=== PATIENT | male | born 1990 | race Caucasian/White ===

== ENCOUNTER 2021-09-14 01:26 | Emergency (ER) | payer SELFPAY ==
[2021-09-14 01:34] VITALS: BP 107/60; BP 110/60; PULSE 90; PULSE 91; RESP 16; TEMP 36.4; O2SAT 95; O2SAT 97; BMI 22.9
--- NOTE | 2021-09-14 02:21 | ED.ALCOHOL ---
HPI - Alcohol General Chief Complaint: ETOH/Substance Use Stated Complaint: ETOH Time Seen by Provider: 09/14/21 01:44 Source: EMS Mode of arrival: EMS Limitations: altered mental status History of Present Illness HPI narrative: 31-year-old male who presents emergency department for evaluation altered mental status. Information came from EMS and nursing notes the patient is altered and most likely acutely intoxicated. According to EMS, the patient's friends reported that the patient drink closed to handle vodka and then became unresponsive. The patient's friends tried to wake him up by putting him in shower. The patient did not wake up and his friend then called an ambulance. Initially he was given Narcan with no response. The patient was then transported to the emergency department. On arrival to the emergency department the patient is minimally responsive to painful stimuli, he is breathing spontaneously and does not appear to be in respiratory distress. There are no old records in our system on this patient. MD complaint: alcohol intoxication Last drink: Just prior to admission Amount of alcohol consumed: One handle of vodka Treatments prior to arrival: other (Intranasal Narcan with no effect) Related Data Allergies Allergy/AdvReac Type Severity Reaction Status Date / Time No Known Allergies Allergy Verified 09/14/21 02:17 Review of Systems Review of Systems: Yes Unobtainable due to mental status [facility] Past Medical History [facility] Narrative: Past medical history unknown. Past surgical history unknown. Social history: Unobtainable except for the fact the patient did drink a large amount of vodka prior to coming to the emergency department. Physical Exam ED Vital Signs: Vital Signs - 24 hr 09/14/21 01:34 09/14/21 02:22 09/14/21 03:23 Temperature 97.6 F Pulse Rate 91 67 79 Respiratory Rate 16 19 16 Blood Pressure 107/60 93/55 L 98/55 L Pulse Oximetry 97 96 97 09/14/21 04:28 09/14/21 05:46 Temperature Pulse Rate 76 77 Respiratory Rate 20 18 Blood Pressure 106/53 L 100/52 L Pulse Oximetry 98 98 BMI result Body Mass Index 22.9 Const Other: Somnolent male patient minimally responsive to painful stimuli, breathing spontaneously HENMT Head: Yes normal to inspection, Yes normocephalic and Yes atraumatic Ears: external ears normal General nose exam: Normal external nose present Face and sinus: Yes normal facial exam Mouth: Normal oral and palatal mucosa present Throat: Yes posterior oropharynx normal Eyes General: appearance normal, both eyes and all related structures Neck Neck: Yes normal visual inspection, Yes no lymphadenopathy, Yes trachea midline and Yes supple Chest Chest palpation & inspection: normal inspection of the chest and normal palpation of entire chest wall Resp Effort & Inspection: normal respiratory effort and able to speak in complete sentences Auscultation: clear to auscultation bilaterally Cardio Rate: regular rate Rhythm: regular rhythm Heart sounds: S1 normal heart sound present, S2 normal heart sound present and no murmurs GI Inspection: Yes normal to inspection Palpation (GI): Soft to palpation, nontender and no guarding Auscultation: normal bowel sounds General: Yes no CVA tenderness Back/Spine/Pelvis Back: no CVA tenderness Skin General skin exam: no rashes or lesions noted Neuro Other: Minimally responsive to painful stimuli Extrem General: Yes normal to inspection Course Course Course Narrative: 31-year-old male who reportedly drank a large amount alcohol prior to coming to the emergency department. The patient was given intranasal Narcan prior to coming to the emergency department with no change in his altered level of consciousness. On presentation the patient is somnolent and minimally responsive to painful stimuli, he is breathing spontaneously, his O2 saturation was 97% on room air. His exam was consistent with acute intoxication. The patient was placed on a cardiac, O2 saturation and end-tidal CO2 monitor. Laboratory evaluation was ordered. This time I do not think that he needs a head CT or that he needs to be intubated however will watch this patient will be monitored for signs of respiratory depression. 0658: Start physician observation: Laboratory evaluation: WBC elevated 16,600. CO2 low 18, chloride elevated 114, ETOH level elevated 338. Patient's presentation is consistent with acute alcohol intoxication. The patient was re-evaluated by me. The patient was still somnolent and does respond to painful stimuli. Lungs were clear, heart regular rate rhythm, abdomen soft nontender. The patient has been in the emergency department for approximately 5.5 hours and I believe that he still needs more time for observation. Therefore the patient will be placed in physician observation. I will obtain a CT scan brain to look for other possibilities for his altered mental status. At the end of my shift, the patient's care was turned over to my colleague, Dr. Elmogy. MDM - Alcohol Lab Data Result diagrams: 09/14/21 02:32 09/14/21 02:32 Labs: Lab Results 09/14/21 09/14/21 09/14/21 Range/Units 02:32 02:32 02:32 WBC 16.6 H (4.8-10.8) X10*3/uL RBC 4.63 (4.60-5.80) X10*6/uL Hgb 14.0 (14.0-18.0) g/dl Hct 41.3 L (42.0-52.0) % MCV 89.2 (80.0-98.0) fL MCH 30.2 (27.0-33.0) pg MCHC 33.9 (31.0-36.0) g/dl RDW 11.7 (11.0-16.0) % Plt Count 281 (160-400) X10*3/uL MPV 9.4 (9.4-12.4) fL Immature Gran % (Auto) 0.3 (0.0-0.4) % Neut % (Auto) 77.5 H (45-73) % Lymph % (Auto) 16.6 L (20-40) % [place] % (Auto) 5.2 (2-11) % Eos % (Auto) 0.1 (0-4) % Baso % (Auto) 0.3 (0-2) % Lymph # (Auto) 2.8 (1.2-4.9) X10*3/uL [place] # (Auto) 0.9 (0.1-1.2) X10*3/uL Eos # (Auto) 0.0 (0.0-0.4) X10*3/uL Baso # (Auto) 0.1 (0.0-0.2) X10*3/uL Abs Immat Gran (auto) 0.05 H (0.00-0.03) X10*3/uL Absolute Neuts (auto) 12.9 H (2.0-8.3) x10*3/uL Absolute Nucleated RBC 0.000 (0.0-0.012) X10*3/uL Nucleated RBC % (auto) 0.0 (0.0-0.2) /100WBC Sodium 144 (135-145) mmol/L Potassium 4.0 (3.3-5.1) mmol/L Chloride 114 H (96-108) mmol/L Carbon Dioxide 18 L (22-29) mmol/L Anion Gap 16 (12-20) BUN 15 (9-16) mg/dL Creatinine 0.68 (0.5-1.4) mg/dL Estim Creat Clear Calc 164.5 Estimated GFR > 60 Random Glucose 90 (60-115) mg/dL Calcium 7.9 L (8.4-10.2) mg/dL Total Bilirubin 0.2 (0.0-1.0) mg/dL AST 25 (5-37) U/L ALT 15 (0-40) U/L Alkaline Phosphatase 56 (39-117) U/L Total Protein 6.8 (6.5-8.0) g/dL Albumin 3.9 (3.5-5.0) g/dL Ethyl Alcohol 338 H* mg/dL Discharge Plan Discharge Clinical Impression: Alcoholic intoxication, Acute alteration in mental status Patient Disposition: Still a Patient
[2021-09-14 02:22] VITALS: BP 93/55; PULSE 67; RESP 19; O2SAT 96
[2021-09-14 02:36] LABS: MANUAL DIFF FLAG NO
[2021-09-14 02:37] LABS: Basophils Absolute Auto 0.1 X10*3/uL (0.0-0.2); Basophils Percent Auto 0.3 % (0-2); Eosinophils Percent Auto 0.1 % (0-4); Hematocrit 41.3 % (42.0-52.0); Imm Gran Abs Auto 0.05 X10*3/uL (0.00-0.03); Imm Gran Pct Auto 0.3 % (0.0-0.4); Lymphocytes Absolute Auto 2.8 X10*3/uL (1.2-4.9); Lymphocytes Percent Auto 16.6 % (20-40); Mean Corpuscular HGB Conc 33.9 g/dl (31.0-36.0); Mean Corpuscular Hemoglobin 30.2 pg (27.0-33.0); Mean Corpuscular Volume 89.2 fL (80.0-98.0); Mean Platelet Volume 9.4 fL (9.4-12.4); Monocytes Absolute Auto 0.9 X10*3/uL (0.1-1.2); Monocytes Percent Auto 5.2 % (2-11); Neutrophils Absolute Auto 12.9 x10*3/uL (2.0-8.3); Neutrophils Percent Auto 77.5 % (45-73); Platelet Count 281 X10*3/uL (160-400); Red Blood Count 4.63 X10*6/uL (4.60-5.80); Red Cell Distribution Width 11.7 % (11.0-16.0); White Blood Count 16.6 X10*3/uL (4.8-10.8)
[2021-09-14 02:54] LABS: Ethanol 338 mg/dL
[2021-09-14 03:00] LABS: Alanine Aminotransferase 15 U/L (0-40); Albumin Level 3.9 g/dL (3.5-5.0); Alkaline Phosphatase 56 U/L (39-117); Anion Gap 16 (12-20); Aspartate Amino Transferase 25 U/L (5-37); Bilirubin Total 0.2 mg/dL (0.0-1.0); Blood Urea Nitrogen 15 mg/dL (9-16); Calcium 7.9 mg/dL (8.4-10.2); Carbon Dioxide 18 mmol/L (22-29); Chloride 114 mmol/L (96-108); Creatinine Clr Calc Pharmacy 164.5; Estimated Glomerular Filt Rate > 60; Glucose Random 90 mg/dL (60-115); Sodium 144 mmol/L (135-145); Total Protein 6.8 g/dL (6.5-8.0)
[2021-09-14 03:23] VITALS: BP 98/55; PULSE 79; RESP 16; O2SAT 97
[2021-09-14 04:28] VITALS: BP 106/53; PULSE 76; RESP 20; O2SAT 98
[2021-09-14 05:46] VITALS: BP 100/52; PULSE 77; RESP 18; O2SAT 98
[2021-09-14 07:03] VITALS: BP 100/48; PULSE 74; RESP 19; TEMP 36.3; O2SAT 98
[2021-09-14 07:58] LABS: Amphetamine Screen Urine Not Detected (Not Detect); Barbiturates, Urine Not Detected (Not Detect); Benzodiazepines Screen Urine Not Detected (Not Detect); Cannabinoid Screen Urine POSITIVE (Not Detect); Cocaine Screen Urine POSITIVE (Not Detect); Fentanyl, urine Not Detected (Not Detect); Opiate Screen Urine Not Detected (Not Detect); Phencyclidine Screen Urine Not Detected (Not Detect)
--- NOTE | 2021-09-14 08:28 | PC.NURSE ---
pt pulled out his iv. dressing to l hand.
--- NOTE | 2021-09-14 08:49 | PC.NURSE ---
pt getting agitated w staff at nurses station, becoming verbally agressive, provider and security at pt bedside. pt ambulating w steady gait.
--- NOTE | 2021-09-14 09:03 | PC.NURSE ---
[employer] at bedside , pt belligerent and adamant about leaving. [employer]PD states that pt can leave and he did. pt alert and orientated and lucid and walking indepentley and left with his belongings. aware.
== END 2021-09-14 09:10 | disposition home or self-care (01) ==
PROVIDERS: Emergency Medicine Emergency Medical Services; Emergency Provider Emergency Medicine
DX: F10.129 Alcohol abuse with intoxication, unspecified (principal); Y90.8 Blood alcohol level of 240 mg/100 ml or more; F14.90 Cocaine use, unspecified, uncomplicated; F12.90 Cannabis use, unspecified, uncomplicated
CPT/HCPCS: 80053; 80307; 82077; 85025; 99284